=== PATIENT | male | born 1960 | race Caucasian/White ===

== ENCOUNTER 2021-04-09 08:00 | Outpatient (CLI) | payer OTHER ==
[2021-04-09 15:15] LABS: BACTERIA,URINE Rare /HPF (None Seen); BILIRUBIN,URINE NEGATIVE (NEGATIVE); CLARITY,URINE CLOUDY (CLEAR); GLUCOSE, URINE (UA) NEGATIVE (NEGATIVE); KETONES,URINE (UA) NEGATIVE (NEGATIVE); LEUKOCYTE ESTERASE, URINE NEGATIVE (NEGATIVE); NITRITE,URINE NEGATIVE (NEGATIVE); OCCULT BLOOD,URINE LARGE (NEGATIVE); PROTEIN,URINE 30 mg/dL (NEGATIVE); SQUAMOUS EPITHELIAL CELL,UR RARE Squamous (<= Few); UROBILINOGEN,URINE 0.2 (NORMAL) E.U./dL (NORMAL)
[2021-04-09 15:16] LABS: CRYSTALS,URINE 6-10 Calcium Oxalate /LPF
== END 2021-04-09 23:59 | disposition home or self-care (01) ==
LOC: LAB.S 08:00
PROVIDERS: ATTEND Physician Assistant Medical
DX: R31.9 Hematuria, unspecified (principal)
CPT/HCPCS: 81001

== ENCOUNTER 2021-04-23 17:19 | Outpatient (CLI) | payer OTHER ==
--- NOTE | 2021-04-23 17:51 | XRAY Report ---
PROCEDURE: Abdomen 2 View X-Ray INDICATIONS: FAMILY HX OF KIDNEY STONES, HEMATURIA TECHNIQUE: 2 views of the abdomen were acquired. COMPARISON: CT of abdomen and pelvis dated 01/19/2013 FINDINGS: Surgical changes and devices: None. Bowel: No pneumoperitoneum. The bowel gas pattern is nonobstructive. Fecal stasis in the colon is s een. Soft tissues: No masses; visualized solid organ contours appear normal in size. No suspicious abdom inal calcifications. Bones: No suspicious bony abnormalities. IMPRESSION: 1. No gross renal calcification is seen. 2. Constipation. No gross free air. Reviewed by: Bartolo Forde MD on 04/23/2021 5:50 PM PDT Approved by: Bartolo Forde MD on 04/23/2021 5:50 PM PDT Station ID: [id number]
--- NOTE | 2021-04-23 17:51 | XRAY Report ---
PROCEDURE: Pelvis 1 View INDICATIONS: FAMILY HX OF KIDNEY STONES, HEMATURIA TECHNIQUE: 1 view(s) of the pelvis acquired. COMPARISON: None. FINDINGS: Bones: No fractures or dislocations. No suspicious bony lesions. Soft tissues: Visualized bowel gas pattern is normal. No suspicious soft tissue calcifications. Sm all round calcification in lateral aspect of lower pelvis is seen most likely represent phleboliths. IMPRESSION: Likely phleboliths seen in right lower pelvis. No definite ureteral or bladder stone is s een. Reviewed by: Bartolo Forde MD on 04/23/2021 5:50 PM PDT Approved by: Bartolo Forde MD on 04/23/2021 5:50 PM PDT Station ID: [id number]
== END 2021-04-23 17:20 | disposition home or self-care (01) ==
LOC: DI.S 17:19
PROVIDERS: ATTEND Registered Nurse
DX: R31.9 Hematuria, unspecified (principal); Z84.1 Family history of disorders of kidney and ureter; K59.00 Constipation, unspecified

== ENCOUNTER 2021-04-25 07:22 | Outpatient (CLI) | payer OTHER ==
[2021-04-25 14:42] LABS: BASOPHILS # (AUTO) 0.1 10^3/uL (0.0-0.1); BASOPHILS % (AUTO) 0.8 %; EOSINOPHILS # (AUTO) 0.2 10^3/uL (0.0-0.7); EOSINOPHILS % (AUTO) 2.7 %; HCT - HEMATOCRIT 46.1 % (42.0-52.0); HGB - HEMOGLOBIN 14.7 g/dL (14.0-18.0); LYMPHOCYTES # (AUTO) 1.9 10^3/uL (1.5-3.5); LYMPHOCYTES % (AUTO) 30.6 %; MEAN CORPUSCULAR HEMOGLOBIN 30.6 pg (27.0-31.0); MEAN CORPUSCULAR HGB CONC 31.9 g/dL (32.0-36.0); MEAN CORPUSCULAR VOLUME 95.8 fL (80.0-94.0); MEAN PLATELET VOLUME 11.1 fL (7.4-11.4); MONOCYTES # (AUTO) 0.6 10^3/uL (0.0-1.0); MONOCYTES % (AUTO) 9.6 %; NEUTROPHILS # (AUTO) 3.6 10^3/uL (1.5-6.6); NEUTROPHILS % (AUTO) 56.1 %; PLT - PLATELET COUNT 176 10^3/uL (130-450); RED BLOOD COUNT 4.81 10^6/uL (4.70-6.10); RED CELL DISTRIBUTION WIDTH 13.1 % (12.0-15.0); WHITE BLOOD COUNT 6.3 x10^3/uL (4.8-10.8)
[2021-04-25 15:55] LABS: ALBUMIN 4.4 g/dL (3.2-5.5); ALBUMIN/GLOBULIN RATIO 1.7 (1.0-2.2); ALKALINE PHOSPHATASE 74 IU/L (42-121); ALT ALANINE AMINOTRANSFERASE 104 IU/L (10-60); AST ASPARTATE AMINOTRANSFERASE 57 IU/L (10-42); BUN - BLOOD UREA NITROGEN 19 mg/dL (6-20); CALCIUM 9.6 mg/dL (8.5-10.3); CARBON DIOXIDE - CO2 29 mmol/L (21-32); CHLORIDE 102 mmol/L (101-111); CHOL/HDL RATIO 3.5 (<5.0); CHOLESTEROL 191 mg/dL; CREATININE 0.7 mg/dL (0.6-1.2); GFR - MDRD 115 (>89); GLUCOSE 91 mg/dL (70-100); HDL CHOLESTEROL 54 mg/dL; LDL CHOLESTEROL,CALCULATED 112 mg/dL; LDL/HDL RATIO 2.1 (<3.6); POTASSIUM 4.1 mmol/L (3.5-5.0); SODIUM 137 mmol/L (135-145); TRIGLYCERIDES 127 mg/dL; VLDL CHOLESTEROL 25 mg/dL
[2021-04-25 16:06] LABS: THYROID STIMULATING HORMONE 1.83 uIU/mL (0.34-5.60)
== END 2021-04-25 07:23 | disposition home or self-care (01) ==
LOC: LAB.S 07:22
PROVIDERS: ATTEND Registered Nurse
DX: R74.8 Abnormal levels of other serum enzymes (principal); R31.9 Hematuria, unspecified; Z79.899 Other long term (current) drug therapy; Z84.1 Family history of disorders of kidney and ureter
CPT/HCPCS: 36415; 80053; 80061; 83721; 84443; 85025

== ENCOUNTER 2021-05-19 09:47 | Outpatient (CLI) | payer OTHER ==
[2021-05-19] MEDS ORDERED: IOVERSOL 320 100 ML VIAL IVP ONE ×2 (10:14→12:25)
--- NOTE | 2021-05-19 12:08 | CT Report ---
PROCEDURE: IVP INDICATIONS: MICROSCOPIC HEMATURIA, HX OF KIDNEY STONES CONTRAST: IV CONTRAST: Optiray 320 ml: 140 PO CONTRAST: *NO PO CONTRAST TECHNIQUE: After the administration of oral and intravenous contrast, 5 mm thick sections acquired from the diap hragms to the symphysis. 5 mm thick coronal and sagittal reformats were acquired. For radiation dos e reduction, the following was used: automated exposure control, adjustment of mA and/or kV accordin g to patient size. COMPARISON: Correlation is made with abdomen and pelvis CT, 01/19/2013 FINDINGS: Image quality: Excellent. Lung bases: Lung bases are clear. The previously described right lower lobe pulmonary nodule is defi nitely seen on the current study. Heart size is normal. A small hiatal hernia is incidentally noted. Urinary system: On precontrast imaging, there is a 6 mm stone seen within the right ureteropelvic ju nction, with mild hydronephrosis. Within the left proximal ureter, there is a 2 mm likely partially o bstructing stone seen, as on series 4 image 32. No nonobstructing stones can be seen within either kidney. The more distal ureters are unremarkable. Both kidneys are normal in size and enhancement. Bladder wall thickness is normal. Solid organs: Liver and spleen are normal in size and enhancement. Gallbladder wall does not appear thickened. Biliary system is non dilated. Pancreas enhances normally. No adrenal nodules. Peritoneum and bowel: Bowel loops demonstrate normal wall thickness and caliber. No free fluid or a ir. A normal appendix is seen inferior to the cecum, as on series 12 image 53. Mild distal colonic d iverticulosis is seen, without findings of active diverticulitis Nodes and vessels: No retroperitoneal or mesenteric adenopathy by size criteria. Aorta and inferior vena cava are normal in size. Abdominal wall: No ventral hernias. Pelvis: No pathologic free pelvic fluid. No inguinal hernias or adenopathy. Bones: No suspicious bony lesions. No vertebral body compression fractures. Focal degenerative kamar nge is seen at the T11-T12 level, which has progressed compared to 2013. Milder degenerative changes are seen elsewhere. IMPRESSION: There is a 6 mm stone seen at the right ureteropelvic junction, without significant obst ruction. A 2 mm nonobstructing stone can be seen within the left proximal ureter. No nonobstructing kidney stones are seen. No renal masses are seen. No significant bladder abnormality is seen. Incidental note is made of: Small hiatal hernia Focal T11-T12 degenerative change Distal colonic diverticulosis, without active diverticulitis Normal appendix Reviewed by: Loki Coyne MD on 05/19/2021 11:07 AM [facility] Approved by: Loki Coyne MD on 05/19/2021 11:07 AM [facility] Station ID: [id number]
== END 2021-05-19 09:48 | disposition home or self-care (01) ==
LOC: DI 09:47
PROVIDERS: ATTEND Urology
DX: N20.1 Calculus of ureter (principal); Z87.442 Personal history of urinary calculi
CPT/HCPCS: 74178; Q9967

== ENCOUNTER 2021-07-09 18:07 | Outpatient (CLI) | payer OTHER ==
--- NOTE | 2021-07-09 20:23 | XRAY Report ---
PROCEDURE: Abdomen 1 View X-Ray INDICATIONS: CALCULUS OF URETER TECHNIQUE: 1 view of the abdomen were acquired. COMPARISON: CT IVP dated 05/19/2021, abdominal radiograph dated 04/23/2021 FINDINGS: Surgical changes and devices: None. Bowel: No pneumoperitoneum. The bowel gas pattern is nonobstructive. Moderate constipation is seen. Soft tissues: No masses; visualized solid organ contours appear normal in size. 7 mm oval calcificat ion is seen projecting in right renal fossa not definitely seen on prior radiograph, as seen on previ ous CT IVP. Small calcification is also noted in right lower pelvis which likely represent phlebolith s. Bones: No suspicious bony abnormalities. IMPRESSION: 1. 7 mm calcification in the region of right kidney/right UPJ unchanged from previous CT study. Likel y phleboliths in the right lower pelvis. 2. Constipation. No gross free air. Reviewed by: Bartolo Forde MD on 07/09/2021 8:21 PM PST Approved by: Bartolo Forde MD on 07/09/2021 8:21 PM PST Station ID: [id number]
== END 2021-07-09 18:08 | disposition home or self-care (01) ==
LOC: DI.S 18:07
PROVIDERS: ATTEND Urology
DX: N20.0 Calculus of kidney (principal); R93.5 Abnormal findings on diagnostic imaging of other abdominal regions, including retroperitoneum; K59.00 Constipation, unspecified

== ENCOUNTER 2021-09-06 14:24 | Outpatient (CLI) | payer OTHER ==
--- NOTE | 2021-09-06 15:12 | XRAY Report ---
PROCEDURE: Abdomen 1 View X-Ray INDICATIONS: RENAL CALCULI TECHNIQUE: One view of the abdomen acquired. COMPARISON: 07/09/2021 FINDINGS: Surgical changes and devices: There is interval placement of a right-sided ureteral stent. Bowel: Bowel gas pattern is normal. Soft tissues: 2 adjacent calcifications projecting at the level of lower pole right kidney/proximal ureter is seen and measures in aggregate 9 x 5 mm in size not significantly changed from prior study. No gross left-sided renal calcification is seen. Visualized solid organ contours appear normal in si ze. Bones: No suspicious bony lesions. IMPRESSION: 1. Interval placement of right-sided ureteral stent. 2. Suggestion of right-sided renal versus proximal ureteral calcifications not significantly changed from prior study. Reviewed by: Bartolo Forde MD on 09/06/2021 3:11 PM PDT Approved by: Bartolo Forde MD on 09/06/2021 3:11 PM PDT Station ID: [id number]
== END 2021-09-06 14:25 | disposition home or self-care (01) ==
LOC: DI.S 14:24
PROVIDERS: ATTEND Urology
DX: N20.1 Calculus of ureter (principal); R82.998 Other abnormal findings in urine; R31.0 Gross hematuria; Z87.442 Personal history of urinary calculi; Z96.0 Presence of urogenital implants

== ENCOUNTER 2021-10-02 16:00 | Outpatient (CLI) | payer OTHER ==
--- NOTE | 2021-10-02 17:25 | XRAY Report ---
PROCEDURE: Abdomen 1 View X-Ray INDICATIONS: URETERAL CALCULUS TECHNIQUE: One view of the abdomen acquired. COMPARISON: 09/06/2021 FINDINGS: Surgical changes and devices: Right ureteral stent. Bowel: Bowel gas pattern is normal. Soft tissues: A small, 5 mm and 3 mm right ureteral stones are stable in position compared to the ena or exam. Visualized solid organ contours appear normal in size. Bones: No suspicious bony lesions. IMPRESSION: 2 small right ureteral stones unchanged in position compared to 09/06/2021. Reviewed by: Lyn Chaves MD, PhD on 10/02/2021 5:24 PM PDT Approved by: Lyn Chaves MD, PhD on 10/02/2021 5:24 PM PDT Station ID: [id number]
== END 2021-10-02 16:01 | disposition home or self-care (01) ==
LOC: DI.S 16:00
PROVIDERS: ATTEND Urology
DX: N20.1 Calculus of ureter (principal)

== ENCOUNTER 2021-11-06 12:39 | Outpatient (CLI) | payer OTHER ==
--- NOTE | 2021-11-06 15:36 | XRAY Report ---
PROCEDURE: Abdomen 1 View X-Ray INDICATIONS: URETERAL CALCULUS TECHNIQUE: One view of the abdomen acquired. COMPARISON: 10/02/2021 FINDINGS: Surgical changes and devices: A right-sided ureteral stent remains in place. Positioning is unchanged . Bowel: Bowel gas pattern is nonobstructive. Soft tissues: Redemonstration of 2 rounded ureteral stones projecting near the middle third of the ri ght ureter. One measures approximately 5 mm in size and the second measures approximately 3 mm. They appear to be stable in positioning and size. Small pelvic calculi are also unchanged. They are seen o n the right, lateral aspect of the distal portion of the ureteral stent and likely represent phleboli ths. Visualized solid organ contours appear normal in size. Bones: No suspicious bony lesions. IMPRESSION: Stable size and positioning of 2 small right ureteral stones compared to prior study dated 10/02/2021 Reviewed by: Iban Russell MD on 11/06/2021 3:34 PM PDT Approved by: Iban Russell MD on 11/06/2021 3:34 PM PDT Station ID: [id number]
== END 2021-11-06 12:40 | disposition home or self-care (01) ==
LOC: DI.S 12:39
PROVIDERS: ATTEND Urology
DX: N20.1 Calculus of ureter (principal)

== ENCOUNTER 2022-02-25 08:00 | Outpatient (CLI) | payer OTHER | END 2022-02-25 23:59 | disposition home or self-care (01) | LOC: LAB.S 08:00 | PROVIDERS: ATTEND Physician Assistant | DX: R39.15 Urgency of urination (principal) | CPT/HCPCS: 87086 ==

== ENCOUNTER 2022-04-23 07:19 | Outpatient (CLI) | payer OTHER ==
[2022-04-23 14:12] LABS: BASOPHILS % (AUTO) 0.6 %; EOSINOPHILS # (AUTO) 0.2 10^3/uL (0.0-0.7); EOSINOPHILS % (AUTO) 2.3 %; HCT - HEMATOCRIT 46.1 % (42.0-52.0); HGB - HEMOGLOBIN 14.5 g/dL (14.0-18.0); LYMPHOCYTES % (AUTO) 30.9 %; MEAN CORPUSCULAR HEMOGLOBIN 28.9 pg (27.0-31.0); MEAN CORPUSCULAR HGB CONC 31.5 g/dL (32.0-36.0); MEAN PLATELET VOLUME 10.8 fL (7.4-11.4); MONOCYTES # (AUTO) 0.5 10^3/uL (0.0-1.0); MONOCYTES % (AUTO) 8.1 %; NEUTROPHILS # (AUTO) 3.8 10^3/uL (1.5-6.6); NEUTROPHILS % (AUTO) 57.9 %; PLT - PLATELET COUNT 206 10^3/uL (130-450); RED BLOOD COUNT 5.01 10^6/uL (4.70-6.10); RED CELL DISTRIBUTION WIDTH 13.3 % (12.0-15.0); WHITE BLOOD COUNT 6.6 x10^3/uL (4.8-10.8)
[2022-04-23 14:38] LABS: ALBUMIN 4.2 g/dL (3.2-5.5); ALBUMIN/GLOBULIN RATIO 1.5 (1.0-2.2); ALKALINE PHOSPHATASE 65 IU/L (42-121); ALT ALANINE AMINOTRANSFERASE 14 IU/L (10-60); AST ASPARTATE AMINOTRANSFERASE 22 IU/L (10-42); BILIRUBIN,TOTAL 0.7 mg/dL (0.2-1.0); BUN - BLOOD UREA NITROGEN 13 mg/dL (6-20); CALCIUM 9.5 mg/dL (8.5-10.3); CARBON DIOXIDE - CO2 28 mmol/L (21-32); CHLORIDE 102 mmol/L (101-111); CHOL/HDL RATIO 4.7 (<5.0); CHOLESTEROL 223 mg/dL; CREATININE 0.9 mg/dL (0.6-1.2); GFR - MDRD 86 (>89); GLUCOSE 101 mg/dL (70-100); HDL CHOLESTEROL 47 mg/dL; LDL CHOLESTEROL,CALCULATED 147 mg/dL; LDL/HDL RATIO 3.1 (<3.6); POTASSIUM 3.7 mmol/L (3.5-5.0); SODIUM 139 mmol/L (135-145); TRIGLYCERIDES 144 mg/dL; VLDL CHOLESTEROL 29 mg/dL
[2022-04-23 14:53] LABS: THYROID STIMULATING HORMONE 2.58 uIU/mL (0.34-5.60)
== END 2022-04-23 07:20 | disposition home or self-care (01) ==
LOC: LAB.S 07:19
PROVIDERS: ATTEND Registered Nurse
DX: Z79.899 Other long term (current) drug therapy (principal); Z13.29 Encounter for screening for other suspected endocrine disorder; Z13.220 Encounter for screening for lipoid disorders; Z12.5 Encounter for screening for malignant neoplasm of prostate
CPT/HCPCS: 36415; 80053; 80061; 83721; 84153; 84443; 85025

== ENCOUNTER 2022-05-29 08:00 | Outpatient (CLI) | payer OTHER ==
[2022-05-29 14:23] LABS: GLUCOSE, URINE (UA) NEGATIVE (NEGATIVE); KETONES,URINE (UA) NEGATIVE (NEGATIVE); LEUKOCYTE ESTERASE, URINE SMALL (NEGATIVE); NITRITE,URINE NEGATIVE (NEGATIVE); OCCULT BLOOD,URINE LARGE (NEGATIVE); PH,URINE 5.5 PH (5.0-7.5); PROTEIN,URINE 100 mg/dL (NEGATIVE); UROBILINOGEN,URINE 0.2 (NORMAL) E.U./dL (NORMAL)
[2022-05-29 14:26] LABS: BILIRUBIN,URINE NEGATIVE (NEGATIVE); CLARITY,URINE CLOUDY (CLEAR); ICTOTEST,URINE NEGATIVE
[2022-05-29 14:45] LABS: BACTERIA,URINE Few /HPF (None Seen); RBC,URINE TNTC /HPF (0-5); SQUAMOUS EPITHELIAL CELL,UR RARE Squamous (<= Few); WBC,URINE >25 /HPF (0-3)
[2022-05-29 14:46] LABS: CRYSTALS,URINE 11-25 Ca Oxalate /LPF
== END 2022-05-29 23:59 | disposition home or self-care (01) ==
LOC: LAB.S 08:00
PROVIDERS: ATTEND Nurse Practitioner
DX: Z01.812 Encounter for preprocedural laboratory examination (principal)
CPT/HCPCS: 81001; 87086

== ENCOUNTER 2022-06-03 13:23 | Outpatient (CLI) | payer OTHER ==
[2022-06-03 19:37] LABS: BASOPHILS # (AUTO) 0.1 10^3/uL (0.0-0.1); BASOPHILS % (AUTO) 0.9 %; EOSINOPHILS # (AUTO) 0.1 10^3/uL (0.0-0.7); EOSINOPHILS % (AUTO) 1.6 %; HCT - HEMATOCRIT 42.9 % (42.0-52.0); HGB - HEMOGLOBIN 13.9 g/dL (14.0-18.0); LYMPHOCYTES # (AUTO) 1.9 10^3/uL (1.5-3.5); LYMPHOCYTES % (AUTO) 27.6 %; MEAN CORPUSCULAR HEMOGLOBIN 29.3 pg (27.0-31.0); MEAN CORPUSCULAR HGB CONC 32.4 g/dL (32.0-36.0); MEAN CORPUSCULAR VOLUME 90.5 fL (80.0-94.0); MEAN PLATELET VOLUME 10.9 fL (7.4-11.4); MONOCYTES # (AUTO) 0.6 10^3/uL (0.0-1.0); MONOCYTES % (AUTO) 8.8 %; NEUTROPHILS # (AUTO) 4.2 10^3/uL (1.5-6.6); NEUTROPHILS % (AUTO) 60.8 %; PLT - PLATELET COUNT 203 10^3/uL (130-450); RED BLOOD COUNT 4.74 10^6/uL (4.70-6.10); RED CELL DISTRIBUTION WIDTH 12.8 % (12.0-15.0)
[2022-06-03 20:02] LABS: ALBUMIN 4.2 g/dL (3.2-5.5); ALBUMIN/GLOBULIN RATIO 1.5 (1.0-2.2); BILIRUBIN,TOTAL 0.4 mg/dL (0.2-1.0); CALCIUM 9.5 mg/dL (8.5-10.3); CREATININE 0.8 mg/dL (0.6-1.2); POTASSIUM 4.2 mmol/L (3.5-5.0)
== END 2022-06-03 13:24 | disposition home or self-care (01) ==
LOC: LAB.S 13:23
PROVIDERS: ATTEND Nurse Practitioner
DX: Z01.812 Encounter for preprocedural laboratory examination (principal)
CPT/HCPCS: 36415; 80053; 85025; 87640